=== PATIENT | female | born 1965 | race Caucasian/White ===

== ENCOUNTER 2019-02-13 05:51 | Day surgery (SDC) | payer OTHER ==
[~2019-02-13] VITALS: Ht 154.9 cm; Wt 96.0 kg
[~2019-02-13 05:51] MED LIST: ACID REDUCER PO; ALBUTEROL INH; ASPI81CH PO; ATOR80 PO; B COMPLEX PO; B12 PO; CLARITIN PO; HYDCHL12.5 PO; HYDCHL25 PO; HYDROCHLOROT 25 MG PO; METO50 PO; OLME20 PO; WARF2.5 PO; WARF5 PO
[2019-02-13] MEDS ORDERED: OMEPRAZOLE20 MG PO (06:14)
[2019-02-13] MEDS ORDERED: METO50 PO (06:15)
[2019-02-13] MEDS ORDERED: HYDCHL25 PO (06:15)
[2019-02-13] MEDS ORDERED: AMLO10 PO (12:30)
--- NOTE | 2019-02-13 15:16 | NUR ---
Sbar to Alcira Sanders Rn pt more comfortable now with rx. Good back pain relief of 3/10. Right groin with no hematoma, soft non-tender. IV HL
--- NOTE | 2019-02-13 16:45 | NUR ---
PIV to the left AC removed. Tip intact. Pressure dressing applied. distal pulse noted 2+
--- NOTE | 2019-02-13 16:46 | NUR ---
Discharge note. Reviewed discharge instructions, medication list, new script for Norvasc, and follow up appoint in 02-27-2019 @ [address] Gross. Work excuse for light duty, no lifting for 7 days given to the patient. Patient verbalized all instructions and has no further questions. Patient dressed and arrived. 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
== END 2019-02-13 17:00 | disposition home or self-care (01) ==
LOC: MHTC 05:51
DX: I25.119 Atherosclerotic heart disease of native coronary artery with unspecified angina pectoris (principal); I10 Essential (primary) hypertension; E78.5 Hyperlipidemia, unspecified; E66.9 Obesity, unspecified; Z95.5 Presence of coronary angioplasty implant and graft; Z79.899 Other long term (current) drug therapy; Z79.01 Long term (current) use of anticoagulants; Z79.82 Long term (current) use of aspirin; Z87.891 Personal history of nicotine dependence; Z86.73 Personal history of transient ischemic attack (TIA), and cerebral infarction without residual deficits; Z68.41 Body mass index [BMI] 40.0-44.9, adult
CPT/HCPCS: 85347; 93458; 93571; 93572; 99152; 99153; C1769; C1887; C1894; J0690; J1644; J2250; J3010; J7030; J7040; Q9967

== ENCOUNTER 2021-12-30 08:11 | Emergency (ER) | payer OTHER ==
[~2021-12-30] VITALS: Ht 157.5 cm; Wt 66.7 kg
[~2021-12-30 08:11] MED LIST changes: +AMLO10 PO; +OMEPRAZOLE20 MG PO
[2021-12-30 08:54] LABS: BASOPHILS ABSOLUTE AUTO 0.06 K/mm3 (0.00-0.23); BASOPHILS PERCENT AUTO 1 % (0-2); EOSINOPHILS ABSOLUTE AUTO 0.14 K/mm3 (0.00-0.68); EOSINOPHILS PERCENT AUTO 2 % (0-6); Hematocrit 41.6 % (33.0-51.0); Hemoglobin 14.1 g/dL (11.5-16.0); IMMATURE GRAN ABSOLUTE AUTO 0.09 K/mm3 (0.00-0.10); IMMATURE GRAN PERCENT AUTO 1 % (0-1); LYMPHOCYTES ABSOLUTE AUTO 2.54 K/mm3 (0.84-5.20); LYMPHOCYTES PERCENT AUTO 29 % (21-46); MONOCYTES ABSOLUTE AUTO 0.48 K/mm3 (0.16-1.47); MONOCYTES PERCENT AUTO 6 % (4-13); Mean Corpuscular HGB Conc 33.9 g/dL (31.5-36.5); Mean Corpuscular Volume 86 fL (80-100); Mean Platelet Volume 9.4 fL (9.1-12.4); NEUTROPHILS ABSOLUTE AUTO 5.44 K/mm3 (1.96-9.15); NEUTROPHILS PERCENT AUTO 62 % (41-73); Platelet Count 277 K/mm3 (150-400); RDW Coefficient Variation 12.9 % (11.7-14.2); RDW Standard Deviation 39.8 fL (35.1-46.3); Red Blood Cell Count 4.86 M/mm3 (3.80-5.20); White Blood Cell Count 8.75 K/mm3 (4.00-11.30)
[2021-12-30 08:58] LABS: International Normalized Ratio 1.88; Prothrombin Time Results 18.9 Sec (9.7-11.5)
[2021-12-30 09:06] LABS: Albumin, Blood 3.6 g/dL (3.4-5.0); Albumin/Globulin Ratio 1.1 (0.8-1.8); Bilirubin, Total 0.9 mg/dL (0.1-1.0); Bun/Creatinine Ratio 40.1 (12.0-20.0); Calcium, Blood 8.7 mg/dL (8.5-10.1); Creatinine, Blood 0.5 mg/dL (0.40-1.00); Globulin, Blood 3.2 g/dL (2.2-4.0); Potassium, Blood 3.5 mmol/L (3.5-5.5); Total Protein, Blood 6.8 g/dL (6.4-8.2)
[2021-12-30 12:41] LABS: Source, Urine Clean Catch
[2021-12-30 12:47] LABS: Appearance, Urine Clear (Clear); Bilirubin, Urine Neg (Neg); Blood, Urine Neg (Neg); Color, Urine Yellow (P-Yellow); Glucose Qualitative, Urine Neg (Neg); Ketones, Urine 3+ (Neg); Leukocyte Esterase, Urine Neg (Neg); Nitrite, Urine Neg (Neg); Protein, Urine 1+ (Neg); Urobilinogen, Urine NORM (Normal)
[2021-12-30 12:48] LABS: Base Excess Venous -4.9 mmol/L; PCO2 Venous 34.5 mmHg (38-42); PO2 Venous 99.6 mmHg (38-42); pH Blood Venous 7.38 (7.34-7.37)
[2021-12-30] MEDS ORDERED: ONDA4ODT MM (13:48)
[2021-12-30] MEDS ORDERED: MECL25 PO (13:48)
== END 2021-12-30 14:00 | disposition home or self-care (01) ==
LOC: ER 08:11
PROVIDERS: Emergency Medicine; Family Medicine
DX: R42 Dizziness and giddiness (principal); I10 Essential (primary) hypertension; E11.65 Type 2 diabetes mellitus with hyperglycemia; Z79.01 Long term (current) use of anticoagulants; Z79.899 Other long term (current) drug therapy; Z87.891 Personal history of nicotine dependence
CPT/HCPCS: 70450; 80053; 82010; 82803; 83605; 85025; 85610; 93005; 93010; A9270

== ENCOUNTER 2023-10-02 07:34 | Day surgery (SDC) | payer BC ==
[~2023-10-02] VITALS: Ht 157.5 cm; Wt 73.0 kg
[2023-10-02] VITALS (8 sets, daily range): BP systolic 119–154; BP diastolic 78–93
[~2023-10-02 07:34] MED LIST changes: +ATOR40TA PO; -ATOR80 PO; +Aspir 8181 MG PO; +MECL25 PO; +ONDA4ODT MM
[2023-10-02] MEDS ORDERED: THERA-D2000 UNIT PO (07:57)
[2023-10-02] MEDS ORDERED: COENZYME Q10100 MG PO (07:58)
[2023-10-02] MEDS ORDERED: Midazolam HCl 1MG / ML 2ML Vial ONE (08:07)
[2023-10-02] MEDS ORDERED: FentaNYL Citrate 50 MCG/ML 2 ML Injection ONE (08:07)
[2023-10-02] MEDS ORDERED: NS 1,000 ML IV ONE ×2 (08:08→08:11)
[2023-10-02] MEDS ORDERED: Verapamil HCL 2.5 MG/ML 2ML Injection ONE (08:11)
[2023-10-02] MEDS ORDERED: Heparin Sodium 1000 Units/ML 10ML MDV ONE (08:11)
[2023-10-02] MEDS ORDERED: NS 250 ML IV ONE (08:11)
[2023-10-02] MEDS ORDERED: Nitroglycerin 2 MG/20 ML BTL ONE (08:11)
--- NOTE | 2023-10-02 10:05 | NUR ---
ASSUMED CARE OF PT POST PROCEDURE. PT AWAKE AND CONVERSING APPROPRIATELY; DENIES CHEST PAIN POST PROCEDURE. MONITOR SR 80'S, B/P 135/93, AFEBRILE, SPO2 97% RA. R RADIAL SITE NO SWELLING/HEMATOMA, TR BAND IN PLACE; RUE POSITIVE PLEUTH POST TR BAND PLCEMENT.
--- NOTE | 2023-10-02 11:40 | NUR ---
TR BAND FULLY DEFLATED, R ULNAR SITE WITHOUT S/S OF SWELLING/HEMATOMA.
--- NOTE | 2023-10-02 12:05 | NUR ---
R ULNAR SITE REMAINS UNCHANGED.
--- NOTE | 2023-10-02 12:30 | NUR ---
PT AMB TO THE BATHROOM, GAIT STEADY, VOIDED QS; SITE UNCHANGED WITH ACTIVITY. PT DRESSED SELF WITH MIN ASSISTANCE-SITE UNCHANGED, TR BAND REMOVED, CLOTH DOT AND WRIST IMMOBILIZER PLACED; IV REMOVED-CANNULA INTACT.
--- NOTE | 2023-10-02 12:43 | NUR ---
PT AND DAUGHTER RECEIVED DISCHARGE INSTRUCTIONS, MED LIST AND AFTER CARE INSTRUCTIONS; VERBALIZED GOOD UNDERSTANDING. PT LEFT FACILITY VIA W/C, CONDITION STABLE.
== END 2023-10-02 12:43 | disposition home or self-care (01) ==
LOC: MHTC 07:34
DX: I25.10 Atherosclerotic heart disease of native coronary artery without angina pectoris (principal); I25.2 Old myocardial infarction; I10 Essential (primary) hypertension; E78.5 Hyperlipidemia, unspecified; Z95.5 Presence of coronary angioplasty implant and graft; Z79.01 Long term (current) use of anticoagulants; Z79.899 Other long term (current) drug therapy
CPT/HCPCS: 76937; 93454; 99152; 99153; C1769; C1894; J1644; J2250; J3010; J7030; J7050; Q9967